=== PATIENT | male | born 1935 | race Hispanic/Latino ===

== ENCOUNTER → 2019-05-31 | Outpatient (CLI) | payer OTHER | END | disposition home or self-care (01) | LOC: SHCH 11:25 | PROVIDERS: ATTEND Internal Medicine Cardiovascular Disease | DX: I65.21 Occlusion and stenosis of right carotid artery (principal) | CPT/HCPCS: 93880 ==

== ENCOUNTER 2019-08-15 19:55 | Inpatient (IN) | payer OTHER ==
[~2019-08-15] VITALS: Ht 165.1 cm; Wt 59.0 kg
[2019-08-15] MEDS ORDERED: IPRATROPIUM/ALBUTEROL SULFATE 3 ML SOLUTION IH ONE ×2 (20:24→23:55)
[2019-08-15 20:37] LABS: ABG HCO3 16.6 mmol/L (21.0-28.0); ABG OXYGEN SATURATION 98.7 % (95.0-99.0); ABG PCO2 26 mmHg (35-48)
[2019-08-15 20:39] LABS: BASOPHILS % (AUTO) 0.4 % (0.0-5.0); EOSINOPHILS % (AUTO) 0.8 % (0.0-8.0); HEMATOCRIT 33.9 % (42-54); LYMPHOCYTES % (AUTO) 7.2 % (21.0-51.0); MEAN CORPUSCULAR HEMOGLOBIN 30.9 pg (27.0-33.0); MEAN CORPUSCULAR HGB CONC 33.3 g/dL (32.0-36.0); MEAN CORPUSCULAR VOLUME 92.6 fL (79-99); MONOCYTES % (AUTO) 8.9 % (3.0-13.0); NEUTROPHILS % (AUTO) 82.3 % (40.0-77.0); PLATELET COUNT (AUTO) 202 K/uL (130-400); RED BLOOD CELL COUNT(AUTO) 3.66 MIL/uL (4.50-6.20); RED CELL DISTRIBUTION WIDTH 13.3 % (11.0-15.5); WHITE BLOOD COUNT (AUTO) 10.2 K/uL (4.8-10.8)
[2019-08-15 20:45] LABS: INR 0.99 (0.85-1.15); PARTIAL THROMBOPLASTIN TIME 29.1 SEC (26.3-35.5); PROTHROMBIN TIME 10.7 SEC (9.6-11.6)
[2019-08-15 20:54] LABS: CARBON DIOXIDE 21 mmol/L (21-32); CHLORIDE 98 mmol/L (101-111); CREATININE 1.1 mg/dL (0.5-1.5); GLOMERULAR FILTR. RATE CALC 68 mL/min (>60); GLUCOSE,RANDOM 232 mg/dL (70-105); POTASSIUM 4.2 mmol/L (3.5-5.1); SODIUM SERUM 132 mmol/L (136-145); UREA NITROGEN, BLOOD 15 mg/dL (7-18)
[2019-08-15 20:58] LABS: APPEARANCE,URINE Clear (CLEAR); BILIRUBIN,URINE Small (NEGATIVE); COLOR,URINE Dark Yellow (YELLOW); GLUCOSE, URINE (UA) Negative (NEGATIVE); KETONES,URINE 15 mg/dL (NEGATIVE); LEUKOCYTE ESTERASE ,URINE Trace (NEGATIVE); NITRATE,URINE Negative (NEGATIVE); OCCULT BLOOD,URINE Negative (NEGATIVE); PH,URINE 5.5 (5.0-8.0); PROTEIN,URINE 300 mg/dL (NEGATIVE)
[2019-08-15] MEDS ORDERED: FUROSEMIDE 10 MG/ML 4ML VIAL ONE (21:01)
[2019-08-15] MEDS ORDERED: CEFTRIAXONE SODIUM 1 GM ONE (21:02)
[2019-08-15] MEDS ORDERED: AZITHROMYCIN 500MG+NS 250ML 250 ML IV ONE (21:02)
[2019-08-15 21:08] LABS: ALANINE AMINOTRANSFERASE 20 U/L (12-78); ALBUMIN 3.2 g/dL (3.5-5.0); ASPARTATE AMINOTRANSFERASE 20 U/L (10-37); BILIRUBIN,TOTAL 0.9 mg/dL (0.2-1.0); CREATINE KINASE, TOTAL 192 U/L (21-232); MYOGLOBIN 53 ng/mL (10-92); TOTAL PROTEIN, SERUM 7.7 g/dL (6.0-8.3); TROPONIN I < 0.04 ng/mL (0.00-0.06)
[2019-08-15 21:19] LABS: BACTERIA,URINE Few /HPF (None Seen); MUCUS,URINE Few LPF (None Seen); RBC,URINE None Seen /HPF (0-1); SQUAMOUS EPITHELIAL CELL,UR None Seen /HPF (0-2); WBC,URINE 0-1 /HPF (0-1)
[2019-08-15 21:30] LABS: B-TYPE NATRIURETIC PEPTIDE 738 pg/mL (0-100)
[2019-08-15] MEDS ORDERED: ASPIRIN 325 MG TABLET ONE (22:56)
[2019-08-15] MEDS ORDERED: ACETAMINOPHEN 325 MG TAB PO PRN ×2 (23:15)
[2019-08-15] MEDS ORDERED: LACTULOSE 20 GM/30 ML UDCUP PO PRN (23:15)
[2019-08-15] MEDS: CEFTRIAXONE SODIUM 1 GM IV SCH (23:15)
[2019-08-15] MEDS ORDERED: ONDANSETRON HCL 4 MG/2 ML VIAL IV PRN (23:15)
[2019-08-15] MEDS: AZITHROMYCIN 500MG+NS 250ML 250 ML IV SCH (23:15)
[2019-08-15] MEDS ORDERED: METHYLPREDNISOLONE SOD SUCC 125MG/2ML VIAL IV SCH (23:15)
[2019-08-16] MEDS ORDERED: HYDRALAZINE HCL 20 MG/ML VIAL IV PRN
[2019-08-16] MEDS: IPRATROPIUM/ALBUTEROL SULFATE 3 ML SOLUTION IH SCH ×5 (00:21→23:23)
[2019-08-16] MEDS ORDERED: IOHEXOL 350 MG/ML 100ML INFUS..BTL IV ONE (01:34)
[2019-08-16] MEDS ORDERED: METHYLPREDNISOLONE SOD SUCC 40MG/ML 1ML ONE ×2 (02:35→14:16)
[2019-08-16 04:24] LABS: ABG BASE EXCESS 1.5 mmol/L (-2.0-3.0); ABG OXYGEN SATURATION 97.9 % (95.0-99.0); ABG PCO2 36 mmHg (35-48)
[2019-08-16] MEDS ORDERED: SODIUM CHLORIDE 3% FOR INHALATION 4 ML/AMP VIAL.NEB IH ONE ×3 (05:00→19:35)
[2019-08-16] MEDS ORDERED: IPRATROPIUM/ALBUTEROL SULFATE 3 ML SOLUTION IH ONE ×2 (05:00→11:06)
[2019-08-16 06:17] LABS: BASOPHILS % (AUTO) 0.1 % (0.0-5.0); EOSINOPHILS % (AUTO) 0.1 % (0.0-8.0); HEMATOCRIT 31.7 % (42-54); LYMPHOCYTES % (AUTO) 12.1 % (21.0-51.0); MEAN CORPUSCULAR HEMOGLOBIN 30.7 pg (27.0-33.0); MEAN CORPUSCULAR HGB CONC 33.4 g/dL (32.0-36.0); MEAN CORPUSCULAR VOLUME 91.9 fL (79-99); NEUTROPHILS % (AUTO) 81.3 % (40.0-77.0); PLATELET COUNT (AUTO) 170 K/uL (130-400); RED BLOOD CELL COUNT(AUTO) 3.45 MIL/uL (4.50-6.20); RED CELL DISTRIBUTION WIDTH 13.4 % (11.0-15.5); WHITE BLOOD COUNT (AUTO) 7.3 K/uL (4.8-10.8)
[2019-08-16 06:32] LABS: CREATININE 0.9 mg/dL (0.5-1.5); POTASSIUM 3.6 mmol/L (3.5-5.1)
[2019-08-16 06:59] LABS: B-TYPE NATRIURETIC PEPTIDE 660 pg/mL (0-100)
[2019-08-16] MEDS: INSULIN HUMULIN R 100 UNIT/ML 3ML SQ SCH ×4 (07:30→21:00)
[2019-08-16] MEDS ORDERED: FUROSEMIDE 10 MG/ML 4ML VIAL IVP SCH ×3 (08:00→17:00)
[2019-08-16] MEDS ORDERED: TAMS-1 PO (08:42)
[2019-08-16] MEDS ORDERED: RANI150T7 PO (08:42)
[2019-08-16] MEDS ORDERED: LISI-613 PO (08:42)
[2019-08-16] MEDS ORDERED: DICL1KIT14 TP (08:42)
[2019-08-16] MEDS ORDERED: GLIP10TA9 PO (08:42)
[2019-08-16] MEDS ORDERED: METF-446 PO (08:42)
[2019-08-16] MEDS ORDERED: GABA-531 PO (08:42)
[2019-08-16] MEDS: ENOXAPARIN SODIUM 40 MG/0.4 ML SYRINGE SQ SCH (09:00)
[2019-08-16] MEDS: FAMOTIDINE 20MG TAB 20 MG TAB PO SCH ×2 (09:00→21:00)
[2019-08-16] MEDS: ASPIRIN 81MG TAB.CHEW PO SCH (09:00)
[2019-08-16] MEDS ORDERED: ASPIRIN 81MG TAB.CHEW ONE (09:51)
[2019-08-16] MEDS ORDERED: FAMOTIDINE 20MG TAB 20 MG TAB ONE ×2 (09:52→21:25)
[2019-08-16] MEDS ORDERED: ENOXAPARIN SODIUM 40 MG/0.4 ML SYRINGE SQ ONE (09:52)
[2019-08-16] MEDS ORDERED: FUROSEMIDE 10 MG/ML 2ML VIAL ONE ×2 (09:52→18:03)
[2019-08-16] MEDS ORDERED: METHYLPREDNISOLONE SOD SUCC 125MG/2ML VIAL IV SCH (11:15)
--- NOTE | 2019-08-16 11:37 | NUR ---
INITIAL SW met with patient and spouse. Patient lives with spouse, Yarelis Mcmahon, [phone] and grandson, J Luis Mcmahon, [phone]. No home services. DME: 2 wheel walker, cane, shower chair. Patient is able to complete ADL's but does not drive. Family assists with transportation. PCP is MD at [place]. Patient is on the [facility]. He is not Service Connected for SNF placement under [place]. Patient has [facility] [employer] insurance as well. Pharmacy is [place] pharmacy. DCP as per is home. Addendum: 08/16/19 at 1140 by AMANDA WHITE Amended: Links added.
[2019-08-16] MEDS ORDERED: INSULIN HUMULIN R 100 UNIT/ML 3ML ONE ×3 (11:42→23:08)
[2019-08-16] MEDS ORDERED: ATOR40TA71 PO (15:06)
[2019-08-16] MEDS ORDERED: METO25TA6 PO (15:06)
[2019-08-16] MEDS ORDERED: AMLO10TA7 PO (15:06)
[2019-08-16] MEDS: ATORVASTATIN CALCIUM 20 MG TABLET PO SCH (21:00)
[2019-08-16] MEDS ORDERED: CEFTRIAXONE SODIUM 1 GM ONE (21:25)
[2019-08-16] MEDS ORDERED: ATORVASTATIN CALCIUM 20 MG TABLET ONE (21:26)
[2019-08-16] MEDS ORDERED: AZITHROMYCIN 500MG+NS 250ML 250 ML IV ONE (22:55)
[2019-08-16] MEDS: CEFTRIAXONE SODIUM 1 GM IV SCH (23:15)
[2019-08-16] MEDS: AZITHROMYCIN 500MG+NS 250ML 250 ML IV SCH (23:15)
--- NOTE | 2019-08-17 00:15 | NUR ---
patient arrived to room. orientated to room and call arroyo. denies any complaints of pain at present. patient sob on exertion and when talking. o2 sat 86 percent on 2 L. o2 increased to 4 L with resulting o2 sat 95 percent. call arroyo within reach.
[2019-08-17 00:16] VITALS: BP 127/77
[2019-08-17 04:00] VITALS: BP 122/61
[2019-08-17 05:48] LABS: EOSINOPHILS % (AUTO) 1.6 % (0.0-8.0); HEMATOCRIT 27.3 % (42-54); LYMPHOCYTES % (AUTO) 5.7 % (21.0-51.0); MEAN CORPUSCULAR HEMOGLOBIN 30.4 pg (27.0-33.0); MEAN CORPUSCULAR HGB CONC 33.3 g/dL (32.0-36.0); MEAN CORPUSCULAR VOLUME 91.3 fL (79-99); MONOCYTES % (AUTO) 9.8 % (3.0-13.0); NEUTROPHILS % (AUTO) 82.4 % (40.0-77.0); PLATELET COUNT (AUTO) 167 K/uL (130-400); RED BLOOD CELL COUNT(AUTO) 2.99 MIL/uL (4.50-6.20); RED CELL DISTRIBUTION WIDTH 13.5 % (11.0-15.5)
[2019-08-17] MEDS: INSULIN HUMULIN R 100 UNIT/ML 3ML SQ SCH ×4 (06:05→21:00)
[2019-08-17 06:16] LABS: B-TYPE NATRIURETIC PEPTIDE 531 pg/mL (0-100)
[2019-08-17 06:32] LABS: CARBON DIOXIDE 26 mmol/L (21-32); CHLORIDE 97 mmol/L (101-111); CREATINE KINASE, TOTAL 176 U/L (21-232); CREATININE 1.3 mg/dL (0.5-1.5); GLOMERULAR FILTR. RATE CALC 56 mL/min (>60); GLUCOSE,RANDOM 315 mg/dL (70-105); MYOGLOBIN 111 ng/mL (10-92); PHOSPHORUS 4.1 mg/dL (2.5-4.9); POTASSIUM 3.4 mmol/L (3.5-5.1); SODIUM SERUM 133 mmol/L (136-145); TROPONIN I < 0.04 ng/mL (0.00-0.06); UREA NITROGEN, BLOOD 26 mg/dL (7-18)
[2019-08-17] MEDS: IPRATROPIUM/ALBUTEROL SULFATE 3 ML SOLUTION IH SCH ×4 (06:39→23:18)
[2019-08-17] MEDS: FUROSEMIDE 10 MG/ML 4ML VIAL IVP SCH ×2 (08:00→17:30)
[2019-08-17 08:26] VITALS: BP 112/56
[2019-08-17] MEDS: FAMOTIDINE 20MG TAB 20 MG TAB PO SCH ×2 (10:11→21:15)
[2019-08-17] MEDS: CARVEDILOL 3.125 MG TABLET PO SCH ×2 (10:12→21:15)
[2019-08-17] MEDS: ENOXAPARIN SODIUM 40 MG/0.4 ML SYRINGE SQ SCH (10:12)
[2019-08-17] MEDS: ASPIRIN 81MG TAB.CHEW PO SCH (10:12)
[2019-08-17] MEDS ORDERED: GABAPENTIN 300 MG CAPSULE PO PRN (11:15)
[2019-08-17 12:09] VITALS: BP 115/60
[2019-08-17 16:18] VITALS: BP 131/64
[2019-08-17 19:45] VITALS: BP 134/69
[2019-08-17] MEDS: ATORVASTATIN CALCIUM 20 MG TABLET PO SCH (21:16)
[2019-08-17] MEDS: LISINOPRIL 5 MG TABLET PO SCH (21:16)
[2019-08-17] MEDS: CEFTRIAXONE SODIUM 1 GM IV SCH (21:17)
[2019-08-17] MEDS: AZITHROMYCIN 500MG+NS 250ML 250 ML IV SCH (21:45)
[2019-08-18] VITALS (7 sets, daily range): BP systolic 110–143; BP diastolic 49–76
[2019-08-18 04:33] LABS: CREATININE 0.9 mg/dL (0.5-1.5)
[2019-08-18] MEDS ORDERED: LIDOCAINE HCL-MPF 1% 2ML VIAL IV PRN (05:00)
[2019-08-18] MEDS ORDERED: POTASSIUM CHLORIDE 20MEQ/100ML 100 ML IV PRN (05:00)
[2019-08-18] MEDS ORDERED: POTASSIUM CHLORIDE 10% ELIXIR 20 MEQ/15 ML UDCUP PO PRN (05:00)
[2019-08-18] MEDS: POTASSIUM CHLORIDE 20 MEQ ERTAB PO PRN ×3 (05:46→11:55)
[2019-08-18] MEDS: INSULIN HUMULIN R 100 UNIT/ML 3ML SQ SCH ×4 (05:51→22:45)
--- NOTE | 2019-08-18 06:04 | NUR ---
Patient tolerated Bipap for 4 hours. Back on 3L 02 via NC. Sats at 100%. Patient C/O SOB with exertion only. Will continue to monitor.
[2019-08-18] MEDS: IPRATROPIUM/ALBUTEROL SULFATE 3 ML SOLUTION IH SCH ×2 (06:22→11:54)
--- NOTE | 2019-08-18 07:45 | NUR ---
DAILY ASSESSMENT PT AWAKE AND ORIENTED, REPOSITIONED FOR COMFORT, O2 PER NC. DENIES PAIN OR DISCOMFORT, NO RESPIRATORY DISTRESS, TELEMETRY MONITORING. OOB TO BR WITH ASSISTANCE, GAIT SLOW AND UNSTEADY, O2 WITH EXTENSION. OOB TO CHAIR WITH ASSISTANCE, CALL LIGHT WITHIN REACH, FAMILY AT BEDSIDE.
[2019-08-18] MEDS: FAMOTIDINE 20MG TAB 20 MG TAB PO SCH ×2 (09:00→21:00)
[2019-08-18] MEDS ORDERED: TAMSULOSIN HCL 0.4 MG CAP.ER.24H PO SCH (09:00)
[2019-08-18] MEDS ORDERED: ATORVASTATIN CALCIUM 40 MG TABLET PO SCH (09:00)
[2019-08-18] MEDS: FUROSEMIDE 40 MG TABLET PO SCH (09:10)
[2019-08-18] MEDS: CARVEDILOL 3.125 MG TABLET PO SCH ×2 (09:11→22:49)
[2019-08-18] MEDS: ASPIRIN 81MG TAB.CHEW PO SCH (09:12)
[2019-08-18] MEDS: ENOXAPARIN SODIUM 40 MG/0.4 ML SYRINGE SQ SCH (09:14)
[2019-08-18] MEDS ORDERED: SODIUM CHLORIDE 0.9% 250 ML IV ONE (09:27)
--- NOTE | 2019-08-18 15:54 | NUR ---
CARLOS ENRIQUE PLAN VISITED WITH PATIENTLuis CHESTER FOR AT [facility]. INFO TRIED TO FAX TO [facility]. 8TH TRY STILL BUSY WILL KEEP TRYING. Addendum: 08/18/19 at 1556 by ALESIA BALL RN CM Amended: Links added.
[2019-08-18] MEDS: SODIUM CHLORIDE 3% FOR INHALATION 4 ML/AMP VIAL.NEB IH SCH ×2 (19:00→23:16)
[2019-08-18] MEDS: CEFTRIAXONE SODIUM 1 GM IV SCH (22:48)
[2019-08-18] MEDS: ATORVASTATIN CALCIUM 40 MG TABLET PO SCH (22:49)
[2019-08-18] MEDS: LISINOPRIL 5 MG TABLET PO SCH (22:49)
[2019-08-18] MEDS: TAMSULOSIN HCL 0.4 MG CAP.ER.24H PO SCH (22:50)
[2019-08-18] MEDS: AZITHROMYCIN 500MG+NS 250ML 250 ML IV SCH (22:50)
[2019-08-19 04:18] VITALS: BP 123/65
[2019-08-19 05:00] LABS: BASOPHILS % (AUTO) 0.2 % (0.0-5.0); EOSINOPHILS % (AUTO) 1.5 % (0.0-8.0); HEMATOCRIT 32.7 % (42-54); LYMPHOCYTES % (AUTO) 14.2 % (21.0-51.0); MEAN CORPUSCULAR HEMOGLOBIN 30.1 pg (27.0-33.0); MEAN CORPUSCULAR HGB CONC 32.7 g/dL (32.0-36.0); MEAN CORPUSCULAR VOLUME 91.9 fL (79-99); MONOCYTES % (AUTO) 11.3 % (3.0-13.0); NEUTROPHILS % (AUTO) 72.5 % (40.0-77.0); PLATELET COUNT (AUTO) 208 K/uL (130-400); RED BLOOD CELL COUNT(AUTO) 3.56 MIL/uL (4.50-6.20); RED CELL DISTRIBUTION WIDTH 13.5 % (11.0-15.5); WHITE BLOOD COUNT (AUTO) 8.6 K/uL (4.8-10.8)
[2019-08-19 05:22] LABS: B-TYPE NATRIURETIC PEPTIDE 696 pg/mL (0-100)
[2019-08-19 05:26] LABS: CREATININE 0.8 mg/dL (0.5-1.5); MAGNESIUM 1.3 mg/dL (1.80-2.40); PHOSPHORUS 3.1 mg/dL (2.5-4.9); POTASSIUM 3.2 mmol/L (3.5-5.1)
[2019-08-19] MEDS: INSULIN HUMULIN R 100 UNIT/ML 3ML SQ SCH ×4 (06:13→22:02)
[2019-08-19] MEDS: SODIUM CHLORIDE 3% FOR INHALATION 4 ML/AMP VIAL.NEB IH SCH ×4 (06:57→23:50)
[2019-08-19 07:00] VITALS: BP 140/76
--- NOTE | 2019-08-19 08:00 | NUR ---
DAILY ASSESSMENT PATIENT AWAKE AND ALERT, DENIES CHEST PAIN, NO SOB OR LABORED RESPIRATIONS. PT ON O2 PER NC, OOB AND AMBULATION ENCOURAGED. FAMILY AT BEDSIDE
[2019-08-19] MEDS: FAMOTIDINE 20MG TAB 20 MG TAB PO SCH (09:00)
[2019-08-19] MEDS: ASPIRIN 81MG TAB.CHEW PO SCH (09:20)
[2019-08-19] MEDS: FUROSEMIDE 40 MG TABLET PO SCH (09:21)
[2019-08-19] MEDS: CARVEDILOL 3.125 MG TABLET PO SCH ×2 (09:22→21:29)
[2019-08-19] MEDS: POTASSIUM CHLORIDE 20 MEQ ERTAB PO PRN ×3 (09:28→15:18)
[2019-08-19] MEDS: ENOXAPARIN SODIUM 40 MG/0.4 ML SYRINGE SQ SCH (09:28)
[2019-08-19 11:00] VITALS: BP 130/62
[2019-08-19 15:00] VITALS: BP 150/68
--- NOTE | 2019-08-19 17:30 | NUR ---
[facility]POKE TO [facility] SAID [facility] PENDING MD TO REVIEW. Addendum: 08/19/19 at 1732 by ALESIA BALL RN CM Amended: Links added.
[2019-08-19 19:35] VITALS: BP 146/83
[2019-08-19] MEDS: DOXYCYCLINE HYCLATE 100 MG TABLET PO SCH (21:29)
[2019-08-19] MEDS: TAMSULOSIN HCL 0.4 MG CAP.ER.24H PO SCH (21:29)
[2019-08-19] MEDS: ATORVASTATIN CALCIUM 40 MG TABLET PO SCH (21:29)
[2019-08-19] MEDS: RANITIDINE HCL 15 MG/1 ML PO SCH (21:30)
[2019-08-19] MEDS: LISINOPRIL 5 MG TABLET PO SCH (21:30)
[2019-08-19 23:54] VITALS: BP 138/77
[2019-08-20 03:46] VITALS: BP 126/66
[2019-08-20] MEDS: INSULIN HUMULIN R 100 UNIT/ML 3ML SQ SCH (06:05)
[2019-08-20] MEDS: SODIUM CHLORIDE 3% FOR INHALATION 4 ML/AMP VIAL.NEB IH SCH (06:48)
[2019-08-20 07:56] VITALS: BP 144/79
[2019-08-20] MEDS ORDERED: FUROSEMIDE 40 MG TABLET PO SCH (09:00)
[2019-08-20] MEDS: ENOXAPARIN SODIUM 40 MG/0.4 ML SYRINGE SQ SCH (09:00)
[2019-08-20] MEDS ORDERED: CARV3.1262 PO (09:18)
[2019-08-20] MEDS ORDERED: ASPI-1005 PO (09:18)
[2019-08-20] MEDS ORDERED: FURO40TA7 PO (09:18)
[2019-08-20] MEDS ORDERED: LISI-617 PO (09:18)
[2019-08-20] MEDS ORDERED: ATOR40TA69 PO (09:18)
[2019-08-20] MEDS ORDERED: DOXY100T2 PO (09:18)
[2019-08-20] MEDS: RANITIDINE HCL 15 MG/1 ML PO SCH (09:33)
[2019-08-20 09:38] VITALS: BP 144/79
[2019-08-20] MEDS: CARVEDILOL 3.125 MG TABLET PO SCH (09:38)
[2019-08-20] MEDS: ASPIRIN 81MG TAB.CHEW PO SCH (09:39)
[2019-08-20] MEDS: DOXYCYCLINE HYCLATE 100 MG TABLET PO SCH (09:39)
--- NOTE | 2019-08-20 10:00 | NUR ---
cm note spoke to pt and family, and home o2 portable was delivered to pt's room from [facility], and also pt/family aware to call them when they get home for the concentrator. also provided with [facility] if unable to [facility]. pt and family verbalize understanding.
--- NOTE | 2019-08-20 11:00 | NUR ---
DISCHARGE INSTRUCTIONS/INFORMATION GIVEN TO PATIENT AND . TEACH BACK METHOD USED TO EDUCATE PATIENT ON DIET, HOME O2 USE, NEWLY PRESCRIBED MEDICATIONS, S/S TO MONITOR, WHEN TO CALL MD, AND F/U APPOINTMENTS. PIV REMOVED. TIP WAS INTACT. ALL BELONGINGS WERE PACKED AND TAKEN HOME. HOME O2 DELIVERED AND TAKEN HOME WELL.
--- NOTE | 2019-08-20 11:01 | NUR ---
ADDITIONAL INFO ON D/C PATIENT WILL NEED TO CALL [facility] FOR [facility]POINT[facility] WITH [facility] WHO WILL ALSO GIVE HIM REFERRAL TO SEE DR. TITI CANO. PATIENT VERBALIZED UNDERSTANDING.
== END 2019-08-20 11:00 | disposition home or self-care (01) | DRG 291 ==
LOC: EDH 19:55 → EDHIP 23:03 → 2DH 08-16 23:51
PROVIDERS: ADMIT Internal Medicine; ATTEND Internal Medicine
PROC: 5A09357 Assistance with Respiratory Ventilation, Less than 24 Consecutive Hours, Continuous Positive Airway Pressure (ICD-10-PCS; principal; 2019-08-15)
PROC: 5A09357 Assistance with Respiratory Ventilation, Less than 24 Consecutive Hours, Continuous Positive Airway Pressure (ICD-10-PCS; 2019-08-16)
PROC: 5A09357 Assistance with Respiratory Ventilation, Less than 24 Consecutive Hours, Continuous Positive Airway Pressure (ICD-10-PCS; 2019-08-17)
PROC: 5A09357 Assistance with Respiratory Ventilation, Less than 24 Consecutive Hours, Continuous Positive Airway Pressure (ICD-10-PCS; 2019-08-18)
DX: I11.0 Hypertensive heart disease with heart failure (principal); I50.31 Acute diastolic (congestive) heart failure; J18.9 Pneumonia, unspecified organism; J96.01 Acute respiratory failure with hypoxia; E87.2 Acidosis; E87.1 Hypo-osmolality and hyponatremia; E11.9 Type 2 diabetes mellitus without complications; E78.5 Hyperlipidemia, unspecified; I25.10 Atherosclerotic heart disease of native coronary artery without angina pectoris; I34.0 Nonrheumatic mitral (valve) insufficiency; N40.0 Benign prostatic hyperplasia without lower urinary tract symptoms; Z96.651 Presence of right artificial knee joint; I25.5 Ischemic cardiomyopathy; K21.9 Gastro-esophageal reflux disease without esophagitis; D64.9 Anemia, unspecified; K44.9 Diaphragmatic hernia without obstruction or gangrene; J84.10 Pulmonary fibrosis, unspecified; I27.20 Pulmonary hypertension, unspecified; Z87.891 Personal history of nicotine dependence; Z95.1 Presence of aortocoronary bypass graft; Z88.8 Allergy status to other drugs, medicaments and biological substances; Z79.899 Other long term (current) drug therapy
CPT/HCPCS: 36415; 36600; 71045; 71275; 80048; 80053; 81001; 82550; 82803; 82948; 83605; 83735; 83874; 83880; 84100; 84132; 84145; 84484; 85025; 85378; 85610; 85730; 86038; 86140; 86200; 86215; 86235; 87040; 87071; 87088; 87205; 87486; 87581; 87633; 87798; 93005; 93306; 93356; 94640; 94660; 94664; 94760; 97039; 99291; G0378; J0456; J0696; J1650; J1815; J1940; J2920; J3480; J3490; J7030; Q9967

== ENCOUNTER 2019-10-25 11:34 | Inpatient (IN) | payer OTHER ==
[~2019-10-25] VITALS: Ht 165.1 cm; Wt 53.2 kg
[~2019-10-25 11:34] MED LIST: ASPI-1005 PO; ATOR40TA69 PO; ATOR40TA71 PO; CARV3.1262 PO; DICL1KIT14 TP; DOXY100T2 PO; FURO40TA7 PO; GABA-531 PO; GLIP10TA9 PO; LISI-617 PO; METF-446 PO; RANI150T7 PO; TAMS-1 PO
[2019-10-25 12:24] LABS: BASOPHILS % (AUTO) 0.3 % (0.0-5.0); EOSINOPHILS % (AUTO) 0.7 % (0.0-8.0); HEMATOCRIT 31.1 % (42-54); MEAN CORPUSCULAR HEMOGLOBIN 29.3 pg (27.0-33.0); MEAN CORPUSCULAR HGB CONC 32.8 g/dL (32.0-36.0); MEAN CORPUSCULAR VOLUME 89.4 fL (79-99); MONOCYTES % (AUTO) 8.3 % (3.0-13.0); NEUTROPHILS % (AUTO) 80.4 % (40.0-77.0); PLATELET COUNT (AUTO) 251 K/uL (130-400); RED BLOOD CELL COUNT(AUTO) 3.48 MIL/uL (4.50-6.20); RED CELL DISTRIBUTION WIDTH 16.2 % (11.0-15.5); WHITE BLOOD COUNT (AUTO) 8.8 K/uL (4.8-10.8)
[2019-10-25 12:36] LABS: CREATININE 1.3 mg/dL (0.5-1.5); POTASSIUM 4.1 mmol/L (3.5-5.1)
[2019-10-25 12:41] LABS: ALBUMIN 3.1 g/dL (3.5-5.0); BILIRUBIN,TOTAL 0.9 mg/dL (0.2-1.0); TOTAL PROTEIN, SERUM 7.4 g/dL (6.0-8.3)
[2019-10-25 12:48] LABS: INR 1.09 (0.85-1.15); PARTIAL THROMBOPLASTIN TIME 28.6 SEC (26.3-35.5); PROTHROMBIN TIME 11.7 SEC (9.6-11.6)
[2019-10-25 13:01] LABS: B-TYPE NATRIURETIC PEPTIDE 696 pg/mL (0-100)
[2019-10-25] MEDS ORDERED: DiphenhydrAMINE HCL 50 MG/ML VIAL IV PRN (15:15)
[2019-10-25] MEDS: AZITHROMYCIN 500MG+NS 250ML 250 ML IV SCH (15:15)
[2019-10-25] MEDS ORDERED: ONDANSETRON HCL 4 MG/2 ML VIAL IV PRN (15:15)
[2019-10-25] MEDS ORDERED: DIPHENHYDRAMINE HCL 25 MG CAPSULE PO PRN (15:15)
[2019-10-25] MEDS: CEFTRIAXONE SODIUM 1 GM IV SCH (15:15)
[2019-10-25] MEDS ORDERED: LACTULOSE 20 GM/30 ML UDCUP PO PRN (15:15)
[2019-10-25] MEDS ORDERED: MAG HYDROX/AL HYDROX/SIMETH ES 30 ML SUSP UDCUP PO PRN (15:15)
[2019-10-25] MEDS ORDERED: NITROGLYCERIN 0.4 MG SL TAB SL PRN (15:15)
[2019-10-25] MEDS ORDERED: ACETAMINOPHEN 325 MG TAB PO PRN ×2 (15:15)
[2019-10-25] MEDS ORDERED: GUAIFENESIN-DM 200/20 MG 10 ML PO PRN (15:15)
[2019-10-25] MEDS ORDERED: CEFTRIAXONE SODIUM 1 GM ONE (17:28)
[2019-10-25] MEDS ORDERED: ENOXAPARIN SODIUM 40 MG/0.4 ML SYRINGE SQ ONE (17:29)
[2019-10-25] MEDS ORDERED: AZITHROMYCIN 500MG+NS 250ML 250 ML IV ONE ×2 (17:29→17:37)
[2019-10-25] MEDS ORDERED: FUROSEMIDE 10 MG/ML 4ML VIAL ONE (17:29)
[2019-10-25] MEDS ORDERED: IPRATROPIUM/ALBUTEROL SULFATE 3 ML SOLUTION IH ONE (18:02)
[2019-10-25] MEDS: IPRATROPIUM/ALBUTEROL SULFATE 3 ML SOLUTION IH SCH ×2 (18:34→23:03)
[2019-10-25] MEDS ORDERED: FUROSEMIDE 10 MG/ML 4ML VIAL IVP SCH (21:00)
[2019-10-26] VITALS: BP 101/55
[2019-10-26] MEDS ORDERED: AMLO-258 PO (00:30)
[2019-10-26] MEDS ORDERED: FAMO20TA8 PO (00:30)
[2019-10-26] MEDS ORDERED: FERS325 PO (00:30)
[2019-10-26] MEDS: IPRATROPIUM/ALBUTEROL SULFATE 3 ML SOLUTION IH SCH ×6 (01:48→22:14)
[2019-10-26 04:00] VITALS: BP 113/60
--- NOTE | 2019-10-26 04:10 | NUR ---
ADMIT Pt arrived from ER close to midnight,pt denies chest pain,placed on 02 at 4 liters via Nasal cannula,notified RT re admission and order for DUoneb and cont pulse oximeter.
[2019-10-26] MEDS ORDERED: NON-FORMULARY MEDICATION 1 EACH (Ranitidine HCl 150 MG) PO PRN (08:00)
[2019-10-26 08:08] LABS: BASOPHILS % (AUTO) 0.7 % (0.0-5.0); EOSINOPHILS % (AUTO) 2.5 % (0.0-8.0); HEMATOCRIT 25.9 % (42-54); MEAN CORPUSCULAR HEMOGLOBIN 29.1 pg (27.0-33.0); MEAN CORPUSCULAR HGB CONC 32.8 g/dL (32.0-36.0); MEAN CORPUSCULAR VOLUME 88.7 fL (79-99); MONOCYTES % (AUTO) 10.7 % (3.0-13.0); NEUTROPHILS % (AUTO) 65.9 % (40.0-77.0); PLATELET COUNT (AUTO) 182 K/uL (130-400); RED BLOOD CELL COUNT(AUTO) 2.92 MIL/uL (4.50-6.20); RED CELL DISTRIBUTION WIDTH 16.2 % (11.0-15.5)
[2019-10-26 08:15] LABS: CREATININE 1.1 mg/dL (0.5-1.5); MAGNESIUM 1.2 mg/dL (1.80-2.40)
[2019-10-26] MEDS ORDERED: MAGNESIUM 2GM PREMIX 50ML 50 ML IV ONE (08:56)
[2019-10-26] MEDS ORDERED: POTASSIUM CHLORIDE 20MEQ/100ML 100 ML IV PRN (09:00)
[2019-10-26] MEDS ORDERED: CARVEDILOL 3.125 MG TABLET PO SCH (09:00)
[2019-10-26] MEDS: FAMOTIDINE/PF 20 MG/2 ML VIAL IV SCH (09:00)
[2019-10-26] MEDS ORDERED: LIDOCAINE HCL-MPF 1% 2ML VIAL IV PRN (09:00)
[2019-10-26] MEDS: POTASSIUM CHLORIDE 20 MEQ ERTAB PO SCH (09:16)
[2019-10-26] MEDS: FAMOTIDINE 20MG TAB 20 MG TAB PO SCH (09:17)
[2019-10-26] MEDS: FERROUS SULFATE 325 MG TABLET.DR PO SCH ×2 (09:17→19:53)
[2019-10-26] MEDS: TAMSULOSIN HCL 0.4 MG CAP.ER.24H PO SCH (09:17)
[2019-10-26] MEDS: ASPIRIN 81MG TAB.CHEW PO SCH (09:17)
[2019-10-26] MEDS: ENOXAPARIN SODIUM 40 MG/0.4 ML SYRINGE SQ SCH (09:18)
[2019-10-26 09:29] VITALS: BP 127/68
[2019-10-26 12:14] VITALS: BP_SYST 130; BP_SYST 133; BP_DIAS 58; BP_DIAS 59
[2019-10-26 14:12] LABS: CREATININE 1.1 mg/dL (0.5-1.5); MAGNESIUM 1.7 mg/dL (1.80-2.40); POTASSIUM 4.1 mmol/L (3.5-5.1)
[2019-10-26] MEDS ORDERED: SODIUM CHLORIDE 0.9% 250 ML IV ONE (15:02)
[2019-10-26] MEDS: AZITHROMYCIN 500MG+NS 250ML 250 ML IV SCH (15:08)
[2019-10-26] MEDS: CEFTRIAXONE SODIUM 1 GM IV SCH (15:08)
[2019-10-26] MEDS: MAGNESIUM 2GM PREMIX 50ML 50 ML IV PRN (15:09)
[2019-10-26] MEDS: FUROSEMIDE 10 MG/ML 2ML VIAL IV SCH (18:41)
--- NOTE | 2019-10-26 19:13 | NUR ---
NUCLEAR MED Placed a call to [facility],spoke to Brody said he will do VQ scan tomorrow,that the Kristian Stein told him yesterday to hold it and will let him know yesterday.
[2019-10-26] MEDS: ATORVASTATIN CALCIUM 40 MG TABLET PO SCH (19:53)
[2019-10-26 20:00] VITALS: BP 124/75
--- NOTE | 2019-10-26 23:00 | NUR ---
BATH Bedbath rendered per staff.
[2019-10-27] VITALS: BP 121/68
--- NOTE | 2019-10-27 01:39 | NUR ---
A FIB Pts heart rate been a fib 60's.no episode of bradycardia reported per school lunch monitor tech.
[2019-10-27] MEDS: IPRATROPIUM/ALBUTEROL SULFATE 3 ML SOLUTION IH SCH ×6 (01:41→21:47)
[2019-10-27 04:01] VITALS: BP 110/70
[2019-10-27 04:54] LABS: MAGNESIUM 1.7 mg/dL (1.80-2.40); POTASSIUM 3.5 mmol/L (3.5-5.1)
[2019-10-27] MEDS: FUROSEMIDE 10 MG/ML 2ML VIAL IV SCH (05:06)
[2019-10-27] MEDS: POTASSIUM CHLORIDE 20 MEQ ERTAB PO PRN ×2 (05:07→09:04)
[2019-10-27] MEDS: MAGNESIUM 2GM PREMIX 50ML 50 ML IV PRN (05:07)
[2019-10-27 07:13] LABS: BASOPHILS % (AUTO) 0.3 % (0.0-5.0); EOSINOPHILS % (AUTO) 2.4 % (0.0-8.0); HEMATOCRIT 27.6 % (42-54); LYMPHOCYTES % (AUTO) 15.9 % (21.0-51.0); MEAN CORPUSCULAR HEMOGLOBIN 29.7 pg (27.0-33.0); MEAN CORPUSCULAR HGB CONC 32.2 g/dL (32.0-36.0); MONOCYTES % (AUTO) 10.6 % (3.0-13.0); NEUTROPHILS % (AUTO) 70.5 % (40.0-77.0); PLATELET COUNT (AUTO) 204 K/uL (130-400); RED CELL DISTRIBUTION WIDTH 16.6 % (11.0-15.5); WHITE BLOOD COUNT (AUTO) 6.4 K/uL (4.8-10.8)
[2019-10-27 08:19] VITALS: BP 119/70
[2019-10-27] MEDS ORDERED: CARVEDILOL 3.125 MG TABLET PO SCH (09:00)
[2019-10-27] MEDS: FAMOTIDINE 20MG TAB 20 MG TAB PO SCH (09:00)
[2019-10-27] MEDS: POTASSIUM CHLORIDE 20 MEQ ERTAB PO SCH (09:00)
[2019-10-27] MEDS: FAMOTIDINE/PF 20 MG/2 ML VIAL IV SCH (09:02)
[2019-10-27] MEDS: TAMSULOSIN HCL 0.4 MG CAP.ER.24H PO SCH (09:02)
[2019-10-27] MEDS: ASPIRIN 81MG TAB.CHEW PO SCH (09:03)
[2019-10-27] MEDS: FERROUS SULFATE 325 MG TABLET.DR PO SCH ×2 (09:04→20:29)
[2019-10-27] MEDS: ENOXAPARIN SODIUM 40 MG/0.4 ML SYRINGE SQ SCH (09:10)
[2019-10-27] MEDS ORDERED: ENOXAPARIN SODIUM 60 MG/0.6 ML SQ SCH (09:49)
[2019-10-27 12:47] VITALS: BP 130/72
[2019-10-27 16:01] LABS: % IRON SATURATION 6.6 % (30-44)
--- NOTE | 2019-10-27 16:15 | NUR ---
[facility] consult Patient assessed as ordered. Patient with st II ulcer to left buttock. [facility] recommendations submitted and teaching done with patient regarding turning/repositioning every 2 hrs/prn to prevent further breakdown. Patient verbalized understanding and states he usually tries to. Addendum: 10/28/19 at 0759 by PAULETTE KATZ RN/ELLA Amended: Links added.
--- NOTE | 2019-10-27 16:17 | NUR ---
RD NOTIFICATION Pt admitted with CHF, Pulm Fibrosis. Pt with Heart healthy diet order in place. No report of GI distress, [place] intake. 84 y/o male. BMI 21.4. Attempt at phone Nutrition education d/t isolation protocol with no answer. RD to provide nutrition education in Pt chart. Recommend 30mL Promod TID. RD to continue to monitor. Please notify RD as additional nutrition concerns arise. Thank you. Addendum: 10/27/19 at [address] Amended: Links added.
[2019-10-27 16:34] VITALS: BP 138/75
[2019-10-27] MEDS: FUROSEMIDE 20 MG TABLET PO SCH (16:54)
[2019-10-27 20:23] VITALS: BP 138/74
[2019-10-27] MEDS: CARVEDILOL 3.125 MG TABLET PO SCH (20:30)
[2019-10-27] MEDS: ATORVASTATIN CALCIUM 40 MG TABLET PO SCH (20:30)
[2019-10-28] VITALS (7 sets, daily range): BP systolic 123–136; BP diastolic 64–93
[2019-10-28] MEDS: IPRATROPIUM/ALBUTEROL SULFATE 3 ML SOLUTION IH SCH ×6 (01:12→22:51)
[2019-10-28] MEDS: FUROSEMIDE 20 MG TABLET PO SCH (03:45)
[2019-10-28 04:44] LABS: ABG BASE EXCESS 0.7 mmol/L (-2.0-3.0); ABG HCO3 23.8 mmol/L (21.0-28.0); ABG OXYGEN SATURATION 88.8 % (95.0-99.0); ABG PCO2 34 mmHg (35-48)
[2019-10-28 04:47] LABS: MEAN CORPUSCULAR HEMOGLOBIN 29.3 pg (27.0-33.0); MEAN CORPUSCULAR HGB CONC 32.3 g/dL (32.0-36.0); MEAN CORPUSCULAR VOLUME 90.6 fL (79-99); RED BLOOD CELL COUNT(AUTO) 3.31 MIL/uL (4.50-6.20); RED CELL DISTRIBUTION WIDTH 16.3 % (11.0-15.5); WHITE BLOOD COUNT (AUTO) 8.5 K/uL (4.8-10.8)
[2019-10-28 04:55] LABS: POTASSIUM 3.3 mmol/L (3.5-5.1)
[2019-10-28] MEDS ORDERED: POTASSIUM CHLORIDE 10% ELIXIR 20 MEQ/15 ML UDCUP PO PRN (05:15)
[2019-10-28] MEDS ORDERED: HEPARIN SODIUM 5000UNIT/ML 1ML VIAL SQ SCH ×2 (05:15→21:00)
[2019-10-28] MEDS ORDERED: FUROSEMIDE 10 MG/ML 4ML VIAL ONE (05:15)
[2019-10-28] MEDS ORDERED: FUROSEMIDE 10 MG/ML 2ML VIAL IV SCH (05:15)
[2019-10-28] MEDS ORDERED: POTASSIUM CHLORIDE 20 MEQ ERTAB PO PRN (05:15)
[2019-10-28] MEDS ORDERED: POTASSIUM CHLORIDE 20MEQ/100ML 100 ML IV PRN (05:15)
[2019-10-28] MEDS ORDERED: LIDOCAINE HCL-MPF 1% 2ML VIAL IV PRN (05:15)
[2019-10-28] MEDS ORDERED: MAGNESIUM 2GM PREMIX 50ML 50 ML IV PRN (05:15)
[2019-10-28] MEDS: POTASSIUM CHLORIDE 10 MEQ/TAB.SA PO SCH ×2 (05:51→19:48)
[2019-10-28 06:05] LABS: CREATINE KINASE, TOTAL 113 U/L (21-232); MYOGLOBIN 70 ng/mL (10-92); TROPONIN I < 0.04 ng/mL (0.00-0.06)
[2019-10-28] MEDS: FUROSEMIDE 10 MG/ML 4ML VIAL IV SCH ×2 (06:09→19:48)
[2019-10-28] MEDS: TAMSULOSIN HCL 0.4 MG CAP.ER.24H PO SCH (10:12)
[2019-10-28] MEDS: FAMOTIDINE 20MG TAB 20 MG TAB PO SCH (10:12)
[2019-10-28] MEDS: ASPIRIN 81MG TAB.CHEW PO SCH (10:12)
[2019-10-28] MEDS: FERROUS SULFATE 325 MG TABLET.DR PO SCH ×2 (10:12→20:27)
[2019-10-28] MEDS: CARVEDILOL 3.125 MG TABLET PO SCH ×2 (10:13→20:27)
[2019-10-28] MEDS: MAGNESIUM 2GM PREMIX 50ML 50 ML IV PRN (10:13)
[2019-10-28] MEDS: FAMOTIDINE/PF 20 MG/2 ML VIAL IV SCH (10:13)
[2019-10-28] MEDS: POTASSIUM CHLORIDE 10% ELIXIR 20 MEQ/15 ML UDCUP PO PRN (10:14)
[2019-10-28] MEDS: INSULIN HUMULIN R 100 UNIT/ML 3ML SQ SCH ×3 (12:10→20:28)
--- NOTE | 2019-10-28 12:35 | NUR ---
DYSPHAGIA TAJ COMPLETED S/S OF ASPIRATION AT THIS TIME. RECOMMEND REGULAR SOLIDS, THIN LIQUIDS, AND PILLS WHOLE WITH LIQUIDS TOLERATED. INVESTMENT SPECIALIST EDUCATED Pt ON RISKS AND CONSEQUENCES OF ASPIRATION. INVESTMENT SPECIALIST COORDINATED WITH NURSE CLAY. Addendum: 10/28/[address]ANTI Amended: Links added.
--- NOTE | 2019-10-28 16:14 | NUR ---
CM NOTE/IA MEET WITH PATIENT IN ROOM. PER PATIENT, LIVES WITH SPOUSE AND GRANDSONWANDA. TO BE CALLED FOR RIDE AFTER DC FROM HOSPITAL. INDEPENDENT WITH ADLS, HAS 02, CANE AND WC IN USE AT HOME, NO HH OR PROVIDER SERVICES, AND FEELS SAFE TO RETURN HOME. Addendum: 10/28/19 at 1615 by MACY LEWIS RN CM Amended: Links added.
[2019-10-28] MEDS: METFORMIN HCL 500 MG TABLET PO SCH (17:26)
[2019-10-28 18:41] LABS: MAGNESIUM 2.2 mg/dL (1.80-2.40); PHOSPHORUS 2.9 mg/dL (2.5-4.9)
[2019-10-28] MEDS: ATORVASTATIN CALCIUM 40 MG TABLET PO SCH (20:27)
[2019-10-28] MEDS: ENOXAPARIN SODIUM 60 MG/0.6 ML SQ SCH (20:29)
[2019-10-29] MEDS: IPRATROPIUM/ALBUTEROL SULFATE 3 ML SOLUTION IH SCH ×2 (02:39→06:30)
[2019-10-29 04:00] VITALS: BP 118/64
[2019-10-29 05:18] LABS: BASOPHILS % (AUTO) 0.1 % (0.0-5.0); EOSINOPHILS % (AUTO) 0.9 % (0.0-8.0); HEMATOCRIT 28.5 % (42-54); LYMPHOCYTES % (AUTO) 12.8 % (21.0-51.0); MEAN CORPUSCULAR HEMOGLOBIN 29.1 pg (27.0-33.0); MEAN CORPUSCULAR HGB CONC 32.3 g/dL (32.0-36.0); MEAN CORPUSCULAR VOLUME 90.2 fL (79-99); MONOCYTES % (AUTO) 8.8 % (3.0-13.0); NEUTROPHILS % (AUTO) 77.1 % (40.0-77.0); PLATELET COUNT (AUTO) 221 K/uL (130-400); RED BLOOD CELL COUNT(AUTO) 3.16 MIL/uL (4.50-6.20); RED CELL DISTRIBUTION WIDTH 16.3 % (11.0-15.5); WHITE BLOOD COUNT (AUTO) 7.5 K/uL (4.8-10.8)
[2019-10-29 05:33] LABS: MAGNESIUM 1.8 mg/dL (1.80-2.40); PHOSPHORUS 3.1 mg/dL (2.5-4.9); POTASSIUM 3.6 mmol/L (3.5-5.1)
[2019-10-29] MEDS: INSULIN HUMULIN R 100 UNIT/ML 3ML SQ SCH ×4 (05:52→20:24)
[2019-10-29] MEDS: POTASSIUM CHLORIDE 10% ELIXIR 20 MEQ/15 ML UDCUP PO PRN (05:59)
[2019-10-29] MEDS: MAGNESIUM 2GM PREMIX 50ML 50 ML IV PRN (05:59)
[2019-10-29 07:33] VITALS: BP 128/78
[2019-10-29] MEDS: FERROUS SULFATE 325 MG TABLET.DR PO SCH ×2 (08:43→20:12)
[2019-10-29] MEDS: CARVEDILOL 3.125 MG TABLET PO SCH ×2 (08:43→20:13)
[2019-10-29] MEDS: ASPIRIN 81MG TAB.CHEW PO SCH (08:43)
[2019-10-29] MEDS: FAMOTIDINE 20MG TAB 20 MG TAB PO SCH (08:43)
[2019-10-29] MEDS: FAMOTIDINE/PF 20 MG/2 ML VIAL IV SCH (08:44)
[2019-10-29] MEDS: METFORMIN HCL 500 MG TABLET PO SCH ×2 (08:44→18:15)
[2019-10-29] MEDS: POTASSIUM CHLORIDE 20 MEQ ERTAB PO PRN (08:44)
[2019-10-29] MEDS: TAMSULOSIN HCL 0.4 MG CAP.ER.24H PO SCH (08:44)
[2019-10-29] MEDS: ENOXAPARIN SODIUM 60 MG/0.6 ML SQ SCH ×2 (08:45→20:13)
[2019-10-29] MEDS ORDERED: FUROSEMIDE 10 MG/ML 4ML VIAL IV SCH (09:44)
[2019-10-29] MEDS ORDERED: IPRATROPIUM/ALBUTEROL SULFATE 3 ML SOLUTION IH PRN (10:15)
[2019-10-29] MEDS: FUROSEMIDE 10 MG/ML 2ML VIAL IV SCH ×2 (10:30→20:12)
[2019-10-29 11:27] VITALS: BP 132/62
--- NOTE | 2019-10-29 14:02 | NUR ---
CM NOTE/DCP MEET WITH PATIENT IN ROOM. RECOMMENDATIONS FOR HH WITH PT VS SNF DISCUSSED. PT NOTES REVIEWED, OK TO DC HOME IF MD WISHES. [facility] WITH [facility], PATIENT DECLINED SERVICES STATING HE WASNT READY FOR THAT YET. ADVISED PATIENT TO THINK ABOUT RECOMMENDATION. INFORMED PATIENT THAT IF HE WAS DISCHARGED HOME AND IF FOLLOWING UP WITH [facility], HE CAN REQUEST HH WITH PT FROM [facility] IF HE CHANGES HIS MIND. PRIMARY MD, DR. SERRANO, MADE AWARE. PRIMARY NURSE, BETH SIMPSON, MADE AWARE WELL.
[2019-10-29 15:23] VITALS: BP 121/73
--- NOTE | 2019-10-29 15:58 | NUR ---
NUTRITION EDUCATION Follow Up Heart Failure Nutrition Education placed in Pt chart. Education to be conducted via phone d/t isolation protocol. Addendum: 10/29/19 at [address] Amended: Links added.
--- NOTE | 2019-10-29 19:34 | NUR ---
FAMILY REGARDING CODE STATUS SPOKE TO PATIENTS SHEILA REGARDING HER HUSBANDS CODE STATUS, SHE AGREES WITH HIS WISHES AT THIS TIME. THE PATIENT HAS BEEN CONFUSED ABOUT CODE STATUS, HOWEVER HE STATED HE DID NOT UNDERSTAND WHAT THE DOCTOR WAS ASKING HIM ABOUT CPR. THE PATIENT SAYS HE WANTS TO BE FULL CODE AT THIS TIME. THE PATIENTS AND DAUGHTER WILL COME IN TO HOSPITAL IF ALLOWED TOMORROW TO SPEAK WITH PATIENT ABOUT CODE STATUS AND POSSIBLE HOSPICE.
[2019-10-29] MEDS: POTASSIUM CHLORIDE 10 MEQ/TAB.SA PO SCH (19:43)
[2019-10-29 20:04] VITALS: BP 120/78
[2019-10-29] MEDS: ATORVASTATIN CALCIUM 40 MG TABLET PO SCH (20:12)
[2019-10-30] VITALS (7 sets, daily range): BP systolic 110–139; BP diastolic 66–87
[2019-10-30] MEDS: INSULIN HUMULIN R 100 UNIT/ML 3ML SQ SCH ×4 (06:10→21:00)
[2019-10-30] MEDS: ASPIRIN 81MG TAB.CHEW PO SCH (08:40)
[2019-10-30] MEDS: FAMOTIDINE 20MG TAB 20 MG TAB PO SCH (08:41)
[2019-10-30] MEDS: TAMSULOSIN HCL 0.4 MG CAP.ER.24H PO SCH (08:41)
[2019-10-30] MEDS: METFORMIN HCL 500 MG TABLET PO SCH ×2 (08:41→17:22)
[2019-10-30] MEDS: FERROUS SULFATE 325 MG TABLET.DR PO SCH ×2 (08:41→21:05)
[2019-10-30] MEDS: CARVEDILOL 3.125 MG TABLET PO SCH ×2 (08:41→21:05)
[2019-10-30] MEDS: ENOXAPARIN SODIUM 60 MG/0.6 ML SQ SCH (08:42)
[2019-10-30] MEDS: HONEY 1 APPL/ML TUBE TP SCH (08:43)
[2019-10-30] MEDS: FAMOTIDINE/PF 20 MG/2 ML VIAL IV SCH (08:43)
--- NOTE | 2019-10-30 12:30 | NUR ---
CM NOTE/HOSPICE CM spoke to patient and spouse about discharge planning options. Explained possible SNF placement if wanting to continue with treatments. CM explained hospice services to patient and spouse. Asked CM to also speak to daughter named Ana Maria. Patient and family all in agreement with hospice services at home. Spouse states patient will have assistance 30/12. Daughter reports she is involved in care. CM explained that [facility] may require [facility] for services but will make contact with hospice agency to verify. Patient and family agreeable to any in network hospice agency. CM also discussed code status with patient. States he would like to be DNR status. CM updated nursing with above. CM to fax referral and follow up. Notified family that hospice agency will contact them to discuss DME arrangements. Patient reports he has home o2 portable and concentrator with [facility].
[2019-10-30] MEDS: APIXABAN 2.5 MG TABLET PO SCH ×2 (12:52→21:04)
[2019-10-30] MEDS: FUROSEMIDE 10 MG/ML 2ML VIAL IV SCH (12:53)
[2019-10-30] MEDS: POTASSIUM CHLORIDE 20 MEQ ERTAB PO PRN (12:55)
[2019-10-30] MEDS: ATORVASTATIN CALCIUM 40 MG TABLET PO SCH (21:04)
[2019-10-31 03:57] VITALS: BP 136/69
[2019-10-31 04:38] LABS: BASOPHILS % (AUTO) 0.3 % (0.0-5.0); EOSINOPHILS % (AUTO) 3.4 % (0.0-8.0); HEMATOCRIT 27.8 % (42-54); LYMPHOCYTES % (AUTO) 19.5 % (21.0-51.0); MEAN CORPUSCULAR HEMOGLOBIN 28.4 pg (27.0-33.0); MEAN CORPUSCULAR HGB CONC 32.4 g/dL (32.0-36.0); MEAN CORPUSCULAR VOLUME 87.7 fL (79-99); MONOCYTES % (AUTO) 10.2 % (3.0-13.0); NEUTROPHILS % (AUTO) 66.2 % (40.0-77.0); PLATELET COUNT (AUTO) 236 K/uL (130-400); RED BLOOD CELL COUNT(AUTO) 3.17 MIL/uL (4.50-6.20); RED CELL DISTRIBUTION WIDTH 15.9 % (11.0-15.5); WHITE BLOOD COUNT (AUTO) 6.9 K/uL (4.8-10.8)
[2019-10-31 04:53] LABS: CREATININE 0.9 mg/dL (0.5-1.5); INR 1.12 (0.85-1.15); PARTIAL THROMBOPLASTIN TIME 39.4 SEC (26.3-35.5)
[2019-10-31] MEDS: POTASSIUM CHLORIDE 10 MEQ/TAB.SA PO SCH (05:12)
[2019-10-31] MEDS: POTASSIUM CHLORIDE 20 MEQ ERTAB PO PRN ×2 (05:19→07:02)
[2019-10-31] MEDS: INSULIN HUMULIN R 100 UNIT/ML 3ML SQ SCH ×4 (06:38→21:00)
[2019-10-31 08:00] VITALS: BP 137/64
[2019-10-31] MEDS: METFORMIN HCL 500 MG TABLET PO SCH ×2 (08:00→17:28)
[2019-10-31] MEDS: TAMSULOSIN HCL 0.4 MG CAP.ER.24H PO SCH (09:00)
[2019-10-31] MEDS: FAMOTIDINE 20MG TAB 20 MG TAB PO SCH (09:00)
[2019-10-31] MEDS: FAMOTIDINE/PF 20 MG/2 ML VIAL IV SCH (09:00)
[2019-10-31] MEDS: FERROUS SULFATE 325 MG TABLET.DR PO SCH ×2 (09:00→21:48)
[2019-10-31] MEDS: HONEY 1 APPL/ML TUBE TP SCH (09:00)
[2019-10-31] MEDS: CARVEDILOL 3.125 MG TABLET PO SCH ×2 (09:00→21:47)
[2019-10-31] MEDS: APIXABAN 2.5 MG TABLET PO SCH ×2 (09:00→21:47)
[2019-10-31] MEDS: ASPIRIN 81MG TAB.CHEW PO SCH (09:00)
[2019-10-31] MEDS: FUROSEMIDE 20 MG TABLET PO SCH (09:00)
[2019-10-31 11:40] VITALS: BP 128/64
[2019-10-31 16:52] VITALS: BP 131/58
[2019-10-31 19:42] VITALS: BP 134/75
[2019-10-31] MEDS: ATORVASTATIN CALCIUM 40 MG TABLET PO SCH (21:47)
[2019-11-01] VITALS (7 sets, daily range): BP systolic 123–140; BP diastolic 61–74
[2019-11-01] MEDS: POTASSIUM CHLORIDE 10 MEQ/TAB.SA PO SCH (05:24)
[2019-11-01] MEDS: INSULIN HUMULIN R 100 UNIT/ML 3ML SQ SCH ×4 (05:35→21:00)
[2019-11-01] MEDS: FAMOTIDINE/PF 20 MG/2 ML VIAL IV SCH (08:54)
[2019-11-01] MEDS: METFORMIN HCL 500 MG TABLET PO SCH ×2 (09:13→16:30)
[2019-11-01] MEDS: CARVEDILOL 3.125 MG TABLET PO SCH ×2 (09:13→21:34)
[2019-11-01] MEDS: FAMOTIDINE 20MG TAB 20 MG TAB PO SCH (09:13)
[2019-11-01 09:14] LABS: CREATININE 0.9 mg/dL (0.5-1.5)
[2019-11-01] MEDS: FERROUS SULFATE 325 MG TABLET.DR PO SCH ×2 (09:14→21:34)
[2019-11-01] MEDS: ASPIRIN 81MG TAB.CHEW PO SCH (09:14)
[2019-11-01] MEDS: APIXABAN 2.5 MG TABLET PO SCH ×2 (09:14→21:35)
[2019-11-01] MEDS: FUROSEMIDE 20 MG TABLET PO SCH (09:14)
[2019-11-01] MEDS: TAMSULOSIN HCL 0.4 MG CAP.ER.24H PO SCH (09:15)
[2019-11-01] MEDS: HONEY 1 APPL/ML TUBE TP SCH (09:17)
--- NOTE | 2019-11-01 10:00 | NUR ---
FOLLOW UP COMPLETED. PAINTING TRADES WORKER COORDINATED WITH NURSE ADKINS. Pt TOLERATING DIET RECOMMENDATIONS WITH NO S/S OF ASPIRATION AT THIS TIME. CONTINUE WITH PLAN OF CARE TOLERATED. Addendum: 11/01/[address] CARLOS MOSER Amended: Links added.
[2019-11-01] MEDS: POTASSIUM CHLORIDE 20 MEQ ERTAB PO SCH (10:33)
--- NOTE | 2019-11-01 20:00 | NUR ---
Pt a/ox3. Denies pain or sob at this time. Resting in bed. Call light within reach. at bedside. Will continue to monitor.
[2019-11-01] MEDS: ATORVASTATIN CALCIUM 40 MG TABLET PO SCH (21:34)
[2019-11-02 03:45] LABS: BASOPHILS % (AUTO) 0.3 % (0.0-5.0); EOSINOPHILS % (AUTO) 3.4 % (0.0-8.0); HEMATOCRIT 28.7 % (42-54); LYMPHOCYTES % (AUTO) 19.2 % (21.0-51.0); MEAN CORPUSCULAR HEMOGLOBIN 28.9 pg (27.0-33.0); MEAN CORPUSCULAR HGB CONC 32.1 g/dL (32.0-36.0); MEAN CORPUSCULAR VOLUME 90.3 fL (79-99); MONOCYTES % (AUTO) 10.3 % (3.0-13.0); NEUTROPHILS % (AUTO) 66.5 % (40.0-77.0); PLATELET COUNT (AUTO) 257 K/uL (130-400); RED BLOOD CELL COUNT(AUTO) 3.18 MIL/uL (4.50-6.20); RED CELL DISTRIBUTION WIDTH 15.4 % (11.0-15.5); WHITE BLOOD COUNT (AUTO) 6.4 K/uL (4.8-10.8)
[2019-11-02 04:13] LABS: CREATININE 0.9 mg/dL (0.5-1.5); POTASSIUM 3.9 mmol/L (3.5-5.1)
[2019-11-02 04:23] VITALS: BP 155/72
[2019-11-02] MEDS: POTASSIUM CHLORIDE 10 MEQ/TAB.SA PO SCH (05:15)
[2019-11-02] MEDS: INSULIN HUMULIN R 100 UNIT/ML 3ML SQ SCH (06:11)
[2019-11-02 08:12] VITALS: BP 130/64
[2019-11-02] MEDS: FAMOTIDINE/PF 20 MG/2 ML VIAL IV SCH (09:00)
[2019-11-02] MEDS: POTASSIUM CHLORIDE 20 MEQ ERTAB PO SCH (09:00)
[2019-11-02] MEDS: HONEY 1 APPL/ML TUBE TP SCH (09:00)
[2019-11-02] MEDS: FERROUS SULFATE 325 MG TABLET.DR PO SCH (10:10)
[2019-11-02] MEDS: TAMSULOSIN HCL 0.4 MG CAP.ER.24H PO SCH (10:10)
[2019-11-02] MEDS: FAMOTIDINE 20MG TAB 20 MG TAB PO SCH (10:10)
[2019-11-02] MEDS: CARVEDILOL 3.125 MG TABLET PO SCH (10:10)
[2019-11-02] MEDS: APIXABAN 2.5 MG TABLET PO SCH (10:11)
[2019-11-02] MEDS: ASPIRIN 81MG TAB.CHEW PO SCH (10:11)
[2019-11-02] MEDS: METFORMIN HCL 500 MG TABLET PO SCH (10:11)
[2019-11-02] MEDS: FUROSEMIDE 20 MG TABLET PO SCH (10:11)
--- NOTE | 2019-11-02 11:35 | NUR ---
[facility] recd call from Bessy on referral faxed and recd on Sat for pt. Bessy wanting status on [facility] approval or is family using Medicare. MARIANN spoke to , has not decided. Bessy to f/u with and recontact MARI[facility]
[2019-11-02 11:36] VITALS: BP 126/55
--- NOTE | 2019-11-02 13:08 | NUR ---
DCP: [facility] Basilio met with pt and his and explained hospice thru [facility] vs Medicare. Basilio answered all questions asked. Pt and decided to use Medicare benefits so that pt can discharge home today. Basilio called Bessy from room and informed her. Bessy to call and discuss DME and delivery. Pt has portable O2 tank with him and wants to transport home in private car. CM aware of above.
--- NOTE | 2019-11-02 13:16 | NUR ---
CM NOTE/[facility] PER [facility], CHOOSE [facility]. PER [facility], [facility] AND WILL TRANSFER HOME TODAY VIA PRIVATE VEHICLE ONCE EQUIPMENT AND MEDICATIONS DELIVERED. REPORT GIVEN TO PRIMARY NURSE, BRIANA SIMPSON.
--- NOTE | 2019-11-02 15:20 | NUR ---
DME at the home pt ready for DC per Bessy. Hua nurse made aware as well
== END 2019-11-02 17:15 | DRG 291 ==
LOC: EDH 11:34 → EDHIP 15:04 → 4BH 23:25
PROVIDERS: ADMIT Family Medicine; ATTEND Family Medicine
PROC: 5A09357 Assistance with Respiratory Ventilation, Less than 24 Consecutive Hours, Continuous Positive Airway Pressure (ICD-10-PCS; principal; 2019-10-28)
DX: I11.0 Hypertensive heart disease with heart failure (principal); J96.21 Acute and chronic respiratory failure with hypoxia; I50.33 Acute on chronic diastolic (congestive) heart failure; I48.91 Unspecified atrial fibrillation; J84.10 Pulmonary fibrosis, unspecified; D50.9 Iron deficiency anemia, unspecified; E11.9 Type 2 diabetes mellitus without complications; E78.5 Hyperlipidemia, unspecified; E83.42 Hypomagnesemia; E87.6 Hypokalemia; F02.80 Dementia in other diseases classified elsewhere, unspecified severity, without behavioral disturbance, psychotic disturbance, mood disturbance, and anxiety; G30.9 Alzheimer's disease, unspecified; I25.10 Atherosclerotic heart disease of native coronary artery without angina pectoris; I27.20 Pulmonary hypertension, unspecified; N40.0 Benign prostatic hyperplasia without lower urinary tract symptoms; Z51.5 Encounter for palliative care; Z78.9 Other specified health status; Z79.01 Long term (current) use of anticoagulants; Z82.49 Family history of ischemic heart disease and other diseases of the circulatory system; Z88.5 Allergy status to narcotic agent; Z95.1 Presence of aortocoronary bypass graft; Z96.659 Presence of unspecified artificial knee joint; Z99.81 Dependence on supplemental oxygen
CPT/HCPCS: 36415; 36600; 71045; 78582; 80048; 80053; 82550; 82728; 82803; 82948; 83540; 83550; 83735; 83874; 83880; 83883; 84100; 84132; 84145; 84484; 85025; 85027; 85378; 85610; 85730; 86140; 86334; 92610; 93005; 93970; 94640; 94660; 94664; 94760; 97039; A4606; A9540; A9558; G0378; J0456; J0696; J1650; J1815; J1940; J3475; J3480; J3490; J7050